=== PATIENT | female | born 1955 | race African-American/Black ===

== ENCOUNTER → 2017-03-26 | Day surgery (SDC) | payer OTHER ==
[~2017-03-26] MED LIST: ACETAMINOPHEN 1000 MG/100 ML 100 ML IV ONE; BUPIVACAINE HCL PF 0.25% 30 ML VIAL ONE; BUPIVACAINE HCL PF 0.5% 30 ML VIAL ONE; BUPIVACAINE/EPINEPHRINE 0.5% 50 ML VIAL ONE; BUPIVACAINE/EPINEPHRINE 0.5% PF 10 ML VIAL ONE; CARD180C5 PO; CYCL-36 PO; GUAN1TAB PO; ISOSULFAN BLUE 50 MG/5 ML VIAL SQ ONE; K-TA10TA5 PO; KETOROLAC TROMETHAMINE 30 MG/ML (IVP) VIAL ONE; LACTATED RINGER'S 1000 ML INJ 1,000 ML ONE; LASI20TA PO; LISI40TA PO; LORA1TAB PO; MAGN250T13 PO; METO50TA PO; MIDAZOLAM HCL 2 MG/2 ML VIAL ONE; MORPHINE SULFATE 4 MG/ML INJ ONE; ONDANSETRON HCL 4 MG/2 ML VIAL IV PUSH ONE; PROPOFOL 200 MG/20 ML AMP IV ONE; SERT-129 PO; SODIUM CHLOR 0.9% 250 ML INJ 250 ML IV ONE; TRAM50TA PO; VITA200017 PO; WARF-60 PO; WARF5TAB PO; ceFAZolin 2 GM PREMIX 50 ML ONE
--- NOTE | 2017-03-26 14:35 | TN ---
cc: ALEJANDRA CUEVAS DATE OF SURGERY: 03/26/2017 PREOPERATIVE DIAGNOSIS Right breast cancer. POSTOPERATIVE DIAGNOSIS Right breast cancer. PROCEDURE PERFORMED Right mastectomy and right axillary sentinel lymph node biopsy. SURGEON Alejandra Cuevas. ANESTHESIA General via LMA device. INDICATION The patient is a 61-year-old female with a newly diagnosed clinical stage I right breast cancer. She has opted for mastectomy without reconstruction and now presents for the procedure. FINDINGS At the time of surgery no gross evidence of malignancy was identified in the breast which was quite large and weighed 4.5 pounds. Seven sentinel lymph nodes were removed. #1 was 1+ blue and had a count of 5579. #2 was not blue and had a count of 1356. #3 was not blue and had a count of 1191. #4 was not blue and had a count of 732. #5 was 1+ blue and had a count of 277. #6 was 2+ blue with a count of 184. #7 was 2+ blue with a count of 75. Touch-prep analysis was not performed. PROCEDURE After informed consent was obtained and site verification was performed, the patient was brought to the radiology suite where she underwent peritumoral radionuclide injection. She was then brought to the major operating room where she underwent general anesthesia via an LMA device. The right breast and arm were prepped and draped in sterile fashion. Two grams of Ancef were given and sequential compression hose were placed. 3 cc of half-strength Lymphazurin was injected in the subareolar right breast and a five-minute massage was performed. An elliptical incision to include a large portion of the excess skin tissue was then marked out. 240 cc of tumescent solution which consisted of normal saline and 30 cc of 0.5% Marcaine with epinephrine was then infiltrated circumferentially around the breast in a plane between the subcutaneous fat and anterior breast fascia. Sharp dissection was then performed in the same plane and proceeded superiorly to the clavicle, medially to the parasternal area, inferiorly to the anterior rectus sheath, and laterally to the axilla. This was accomplished using sharp dissection and electrocautery was then used to dissect the breast off the pectoralis muscle. The specimen was oriented with the skin anterior, one short suture superiorly, and one long suture laterally. Inspection of the right axilla through the mastectomy incision did demonstrate multiple blue lymph nodes which were circumferentially dissected free from surrounding structures using the Harmonic scalpel with the counts as noted. Some enlarged high level I lymph nodes were identified near the latissimus and also close to the medial level II, and each of these was circumferentially dissected free from surrounding structures using the Harmonic scalpel with the counts as noted. Good hemostasis was noted in the axilla and electrocautery was used to obtain hemostasis in the breast. The breast tissue was amputated in the axilla and weighed off the field and sent for permanent pathologic evaluation along with each of the sentinel lymph nodes. A permanent axillary tissue specimen was also sent. A stab wound was created along the anterior line of the axilla and a hemostat was used to place a 10-Kazakh drain along the chest wall. The drain was secured to the skin at the stab wound site using a 3-0 nylon suture. The wound was then closed using interrupted 3-0 Vicryl subcutaneous sutures and a 4-0 Monocryl subcuticular suture. Steri-Strips and sterile dressing were applied. The patient tolerated the procedure well with an estimated blood loss of 200 cc and she was extubated in the operating room and brought to the recovery room in good condition. All sponge and needle counts were correct at the conclusion of the case. MD CHRISTIANA Walsh/DANILO /1:57 PM /2:23 PM
== END | disposition home or self-care (01) ==
LOC: ESDC 08:04
PROVIDERS: ATTEND Surgery
DX: C50.911 Malignant neoplasm of unspecified site of right female breast (principal)
CPT/HCPCS: 00400; 01610; 19303; 38525; 38792; 88305; 88307; 88309; J0131; J0690; J1885; J2250; J2270; J2405; J3010; J7050; J7120; Q9968

== ENCOUNTER 2017-03-27 01:28 | Emergency (ER) | payer OTHER ==
[~2017-03-27] VITALS: Ht 172.7 cm; Wt 130.0 kg
[~2017-03-27 01:28] MED LIST changes: -ACETAMINOPHEN 1000 MG/100 ML 100 ML IV ONE; -BUPIVACAINE HCL PF 0.25% 30 ML VIAL ONE; -BUPIVACAINE HCL PF 0.5% 30 ML VIAL ONE; -BUPIVACAINE/EPINEPHRINE 0.5% 50 ML VIAL ONE; -BUPIVACAINE/EPINEPHRINE 0.5% PF 10 ML VIAL ONE; -ISOSULFAN BLUE 50 MG/5 ML VIAL SQ ONE; -KETOROLAC TROMETHAMINE 30 MG/ML (IVP) VIAL ONE; -LACTATED RINGER'S 1000 ML INJ 1,000 ML ONE; -MIDAZOLAM HCL 2 MG/2 ML VIAL ONE; -MORPHINE SULFATE 4 MG/ML INJ ONE; -ONDANSETRON HCL 4 MG/2 ML VIAL IV PUSH ONE; -PROPOFOL 200 MG/20 ML AMP IV ONE; -SODIUM CHLOR 0.9% 250 ML INJ 250 ML IV ONE; -ceFAZolin 2 GM PREMIX 50 ML ONE
[2017-03-27 01:31] VITALS: BP 136/89; PULSE 70; RESP 16; TEMP 97.9; O2SAT 96
[2017-03-27 01:36] VITALS: RESP 18
--- NOTE | 2017-03-27 02:04 | PD ---
HPI Chief Complaint: Bleeding Time Seen by Provider: 01:36 Travel History International Travel<30 days: No Contact w/Intl Traveler<30days: No Traveled to known affect area: No History of Present Illness HPI 61-year-old female who had a right mastectomy at 11:[address] Conway for breast cancer, here for evaluation because she noticed blood on her bandage. The patient reports that she woke up to go to the bathroom tonight when she felt blood dripping down the side of her body. She is on Coumadin for A. fib, which was discontinued for the week prior to surgery, restarted yesterday evening. PFSH Past Medical History Arthritis: Yes (BACK) Asthma: No Atrial Fibrillation: Yes (DX'D 2004) Heart Rhythm Problems: Yes (AFIB) Cancer: No Cardiovascular Problems: Yes (STENTS, ATRIAL FIB) COPD: No Diminished Hearing: No Endocrine: No Gastrointestinal Disorders: Yes (HX GERD) Genitourinary: No Hepatitis: No Hiatal Hernia: No Hypertension: Yes Immune Disorder: No Musculoskeletal: Yes (ARTHRITIS) Neurologic: No Psychiatric: Yes (CLAUSTRAPHOBIA) Reproductive: No Respiratory: No Thyroid Disease: No : 4 Para: 4 Past Surgical History AICD: No Section: Yes (1980) Gynecologic Surgery: Yes (C SECTION) Joint Replacement: No Pacemaker: No Other Surgery: Yes (REMOVAL OF BENIGN CYST TO RIGHT BREAST 2004, RIGHT MASTECTOMY 03/2017) Social History Alcohol Use: No Tobacco Use: No Substance Use: No Allergies-Medications (Allergen,Severity, Reaction): Coded Allergies: acetaminophen (Unverified Allergy, Severe, ITCHY AT NIGHT, 03/27/17) codeine (Unverified Allergy, Severe, 03/27/17) hydrocodone (Unverified Allergy, Severe, ITCHY AT NIGHT, 03/27/17) Reported Meds & Prescriptions Reported Meds & Active Scripts Active Reported Guanfacine Hcl (Guanfacine HCl) 1 Mg Tab 1 Mg PO HS Prinivil 40 mg (Lisinopril) 40 Mg Tab 1 Tab PO BID Cardizem CD 180 mg (Diltiazem CD 180 mg) 180MG/24 Cap 180 Mg PO BID Lorazepam 1 Mg Tab 1 Mg PO HS PRN Flexeril (Cyclobenzaprine HCl) 10 Mg Tab 10 Mg PO TID PRN Tramadol Hcl (Tramadol HCl) 50 Mg Tab 50 Mg PO Q4H PRN Vitamin D3 (Cholecalciferol) 2,000 Unit Tab 3,000 Unit PO DAILY Magnesium 250 Mg Tab 250 Mg PO DAILY K-Tabs (Potassium Chloride) 10 Meq Tab 10 Meq PO DAILY Sertraline 100 mg (Sertraline HCl) 100 Mg Tab 1 Tab PO DAILY Warfarin Sodium 6 mg (Warfarin Sodium) 6 Mg Tab 6 Mg PO MOWEFR Warfarin Sodium 5 mg (Warfarin Sodium) 5 Mg Tab 5 Mg PO SUSATUTH Lopressor (Metoprolol Tartrate) 50 Mg Tab 50 Mg PO BID Lasix (Furosemide) 20 Mg Tab 20 Mg PO DAILY PRN Review of Systems Except as stated in HPI: all other systems reviewed are Neg Physical Exam Narrative GENERAL: Well-developed, well-nourished, comfortable, no apparent distress. SKIN: Right anterior chest with long horizontal surgical incision with Steri- Strips in place with small amount of venous oozing from the lateral corner of the wound as well as around the OMID drain that is just inferior to the surgical incision. HEAD: Atraumatic. Normocephalic. EYES: Pupils equal and round. No scleral icterus. No injection or drainage. CARDIOVASCULAR: Regular rate and rhythm. RESPIRATORY: No accessory muscle use. NEUROLOGICAL: Awake and alert. No obvious cranial nerve deficits. Motor grossly within normal limits. Normal speech. PSYCHIATRIC: Appropriate mood and affect; insight and judgment normal. Data Data Last Documented VS Vital Signs Date Time Temp Pulse Resp B/P (MAP) Pulse Ox O2 Delivery O2 Flow Rate FiO2 03/27/17 02:29 03/27/17 01:36 18 03/27/17 01:31 97.9 70 96 Room Air MDM Medical Decision Making Medical Screen Exam Complete: Yes Emergency Medical Condition: Yes Differential Diagnosis surgical wound bleeding Narrative Course This is a 61-year-old female who is having a small amount of bleeding from the lateral corner of her surgical wound from right mastectomy that was performed yesterday. She also has a small amount of oozing around the OMID drain. A few Steri-Strips were placed over the lateral corner of the surgical incision with cessation of bleeding. Patient was instructed on how to use the OMID drain properly. A new sterile dressing was applied. She is stable for discharge home with outpatient follow-up with her breast surgeon as scheduled next week. She was informed on when to return to the emergency department. She verbalizes understanding and agreement with plan. Diagnosis Primary Impression: Bleeding Referrals: Primary Care Physician 3 days Additional Instructions: Follow-up with your breast surgeon next week as scheduled. Return to the emergency department for worsening symptoms or any other concerns. Disposition: 01 DISCHARGE HOME Condition: Stable Shamir Cast MD Mar 27, 2017 02:04
== END 2017-03-27 02:29 | disposition home or self-care (01) ==
LOC: NEPE 01:28
DX: C50.911 Malignant neoplasm of unspecified site of right female breast (principal); L76.22 Postprocedural hemorrhage of skin and subcutaneous tissue following other procedure; Z90.11 Acquired absence of right breast and nipple
CPT/HCPCS: 99281